=== PATIENT | male | born 1970 | race Caucasian/White ===

== ENCOUNTER 2020-05-11 07:31 | Outpatient (REF) | payer OTHER, SELFPAY ==
[2020-05-11 11:39] LABS: Cholesterol 215 mg/dL; HDL Cholesterol 25 mg/dL; Triglycerides 990 mg/dL
[2020-05-11 11:51] LABS: Alanine Aminotransferase 53 U/L (0-40); Albumin Level 4.2 g/dL (3.5-5.0); Alkaline Phosphatase 161 U/L (39-117); Anion Gap 14 (12-20); Aspartate Amino Transferase 28 U/L (5-37); Bilirubin Total 0.4 mg/dL (0.0-1.0); Blood Urea Nitrogen 13 mg/dL (9-16); Calcium 8.8 mg/dL (8.4-10.2); Carbon Dioxide 26 mmol/L (22-29); Chloride 103 mmol/L (96-108); Estimated Glomerular Filt Rate > 60; Glucose Fasting 138 mg/dL (60-99); Potassium 3.8 mmol/l (3.3-5.1); Sodium 139 mmol/L (135-145); Total Protein 7.4 g/dL (6.5-8.0)
[2020-05-11 12:43] LABS: TSH reflex Free T4 1.71 mIU/mL (0.32-4.0)
== END 2020-05-11 07:32 | disposition home or self-care (01) ==
LOC: HO.HMGCLDS 07:31
PROVIDERS: PCP Nurse Practitioner Family; Visit Provider Nurse Practitioner Family
DX: I10 Essential (primary) hypertension (principal); R74.8 Abnormal levels of other serum enzymes; R73.01 Impaired fasting glucose; E78.5 Hyperlipidemia, unspecified
CPT/HCPCS: 80053; 80061; 84153; 84443

== ENCOUNTER 2020-05-18 14:17 | Outpatient (REF) | payer OTHER, SELFPAY ==
--- NOTE | 2020-05-18 14:20 | FL_ITS ---
EXAMINATION: XR BARIUM SWALLOW CLINICAL INFORMATION: Dysphagia. Globus sensation. COMPARISON: None TECHNIQUE: Routine modified barium swallow was performed in lateral projection under fluoroscopy in presence of speech therapist. FINDINGS: Following oral administration of various consistencies of thin, thick, solid ileum and in between consistencies is normal propagation bolus from the oral cavity through the pharynx into the esophagus. No laryngeal penetration or aspiration seen. No retention of barium seen in the valleculae or piriform sinuses. FLUOROSCOPY TIME: 1.1 minutes DOSE AREA PRODUCT: 2.195 uGy-m2 (microgray-meter squared) FL/FL barium swallow modified IMPRESSION: Unremarkable modified barium swallow. Correlate with speech therapy report.
--- NOTE | 2020-05-19 11:28 | MHC.SL.POC ---
Name: Dinesh Bui Date of : 1970 Age: 49 Date of Registration: 05/18/20 Referring provider: Marcos MARTINEZ Evaluating Clinician: Sarah Beth Garnica M.A. CCC-DEMAND GENERATOR MANAGER Reason for Referral: Patient reports globus sensation and pain when swallowing. Type of Treatment: 48621 Modified Barium Swallow Study Date of Plan of Treatment: 05/18/20 Onset of Symptoms/Illness: 05/18/14 Date Treatment Started: 05/18/20 MEDICAL HISTORY: Year of Onset or Diagnosis: 2013 Comorbidities: Inguinal hernia Degenerative disc disease Decreased hearing right ear Enlarged prostate High triglycerides Dyslipidemia Psoriatic arthritis Current (pre-evaluation) Intake/Diet: Route: PO Diet Grade: Regular Liquid Consistencies: Thin Pre-Study Functional Oral Intake Scale (FOIS): 7- Total oral intake with no restrictions Pain: Currently present reported at time of study, General pain in pharynx. , rated 3 on scale 0-10 SUBJECTIVE: Patient is a 49 year old male who was recently seen by Marcos [place] [employer] for an office visit due to complaints of dysphagia. Physician previously ordered US of thyroid which came back normal. Patient was also previously referred to Raissa who ordered a barium swallow study in 2018, but patient did not complete that exam at that time. Patient reports onset of dysphagia 6 years ago. He reports globus sensation, stating, ?It feels stuck on the right side.? Patient reports difficulty swallowing both liquids and solids, as it ?sometimes goes down the wrong way.? Patient describes the sensation that ?there is something in [his] throat getting in the way on the right side,? which also ?makes a noise when [he] swallows.? Patient reports coughing and a tickle in his throat in cold air. Patient denies any history of pneumonia. Patient reported chronic throat pain, which he rated between 2 and 3 on a scale of 0 to 10. OBJECTIVE: Time-out: performed at 02:45 Evaluation Start: 02:30; Stop: 02:40 Patient Positioning: Standing Viewing Planes: LATERAL ONLY Contrast: MBSImP? Standardized Protocol using commercially prepared, standardized Barium viscosities, including: Varibar? THIN LIQUID (40% w/v, <15 cps) , 1/2 Shortbread Cookie (1 x1 x.25 ) [facility] [place]: [id number] [facility] Results: Lip closure for intraoral bolus containment resulted in no labial escape. Tongue control during bolus hold allowed bolus escape to the lateral buccal cavity/floor of mouth. Bolus preparation and mastication resulted in slow, prolonged chewing/mashing but with complete re-collection. Bolus transport/lingual motion demonstrated delayed initiation of tongue motion. Oral residue was a trace, lining oral structures. Initiation of the pharyngeal swallow occurred as the bolus head was at the posterior laryngeal surface of the epiglottis. Soft palate elevation resulted in no bolus between the soft palate and the pharyngeal wall. Laryngeal elevation was decreased, with partial superior movement of the thyroid cartilage/partial approximation of the arytenoids to the epiglottic petiole. Anterior hyoid excursion demonstrated partial anterior movement. Epiglottic movement resulted in complete inversion. Laryngeal vestibular closure was complete, as indicated by no air or contrast within the laryngeal vestibule at the height of the swallow. Pharyngeal stripping wave was present, but diminished. Pharyngeal contraction could not be determined due to logistical reasons not related to physiologic impairment. Pharyngoesophageal segment opening was completely distended for complete duration with no obstruction of bolus flow. Tongue base retraction allowed a narrow column of contrast or air between the retracted tongue base and the posterior pharyngeal wall. Pharyngeal residue was not present. There was complete pharyngeal clearance. Esophageal clearance in the upright position could not be assessed due to logistical reasons not related to physiologic impairment. Oral Impairment Score: 5 Pharyngeal Impairment Score: 5 (absence of score, component 13) Esophageal Impairment Score: --- (absence of score, component 17) Laryngeal Penetration and Aspiration: Neither penetration nor aspiration was observed in today's study with Lisa, Thin. ASSESSMENT: Clinician Assessment: This exam was conducted by radiologist and speech-language pathologist. Patient was standing for lateral view exam. Patient trialed the following liquid and solid consistencies: -5 mL thin liquid barium -cup sip thin liquid barium (with bolus hold; consecutive sips) -applesauce mixed with barium paste (pureed solid) -chicken salad mixed with barium paste (ground solid) -Kristyn Doone cookie coated in barium paste (regular solid) No aspiration or penetration evident on this exam. Mildly prolonged mastication time, but with complete recollection. Good pharyngeal clearance seen. Partial laryngeal elevation and partial anterior hyoid movement. Epiglottic inversion was complete. Complete laryngeal vestibular closure. Complete distention through pharyngoesophageal segment opening. At this time, dysphagia intervention with a speech-language pathologist is not warranted. Recommend an unmodified diet REGULAR solids and THIN liquids. Due to odynophagia and globus sensation, patient is recommended referrals to gastroenterology and Ear Nose Throat (ENT) for further workup. PLAN: Intake Recommendations: Route: PO Diet Grade: Regular Liquid Consistencies: Thin Post-Study Functional Oral Intake Scale (FOIS): 7- Total oral intake with no restriction Recommendation for Speech Therapy: NA:Typical Evaluation Suggested Referrals: The patient might benefit from a referral to: -Gastroenterology Indication for Referral: further workup for globus sensation and odynophagia -ENT/Otolaryngology Indication for Referral: further workup for globus sensation and odynophagia Therapy Recommendations: Therapy will be discontinued Clinician - Supplemental, Miscellaneous Communication: It is important to note MBSS objective studies are snapshots in time and Patient function might vary with factors such as time of day or concomitant medical conditions. For this reason, the final treatment plan for this patient should rest with their medical care team. Additional recommendations should be considered with the totality of the Patient in mind. Thank for the opportunity to participate in the care of this patient. If you have any questions about the content of this report, please contact the [facility]. Education: Education regarding findings from today's study and plans for therapy were provided to Patient only through Verbal Instruction. Understanding was expressed by the Patient only. Food Service Worker Clinican/Clinical Fellow: No Supervisory Statement: I have reviewed and agree with the documentation written by the student/clinical fellow: N/A Speech Language Pathologist: Sarah Beth Garnica M.A., [facility]-DEMAND GENERATOR MANAGER
== END 2020-05-18 14:18 | disposition home or self-care (01) ==
LOC: HO.XRAY 14:17
PROVIDERS: Visit Provider Nurse Practitioner Family
DX: R13.10 Dysphagia, unspecified (principal)
CPT/HCPCS: 74230; 92611

== ENCOUNTER → 2020-07-13 08:11 | Outpatient (BNVA) | payer OTHER, SELFPAY | PROVIDERS: PCP Nurse Practitioner Family; Visit Provider Internal Medicine Gastroenterology | DX: Z13.89 Encounter for screening for other disorder (principal) | CPT/HCPCS: 99212 ==

== ENCOUNTER 2020-11-12 08:05 | Outpatient (REF) | payer OTHER, SELFPAY ==
[2020-11-12 11:25] LABS: MANUAL DIFF FLAG NO
[2020-11-12 11:43] LABS: Basophils Percent Auto 0.3 % (0-2); Eosinophils Absolute Auto 0.1 X10*3/uL (0.0-0.4); Eosinophils Percent Auto 1.1 % (0-4); Estimated Average Glucose 128 mg/dL; Hematocrit 41.7 % (42-52); Hemoglobin 14.5 g/dl (14.0-18.0); Hemoglobin A1c % 6.1 %; Imm Gran Abs Auto 0.01 X10*3/uL (0.00-0.03); Imm Gran Pct Auto 0.1 % (0.0-0.4); Lymphocytes Absolute Auto 3.3 X10*3/uL (1.2-4.9); Lymphocytes Percent Auto 41.2 % (20-40); Mean Corpuscular HGB Conc 34.8 g/dl (31.0-36.0); Mean Corpuscular Hemoglobin 30.3 pg (27.0-33.0); Mean Corpuscular Volume 87.1 fL (80-98); Mean Platelet Volume 10.9 fL (9.4-12.4); Monocytes Absolute Auto 0.4 X10*3/uL (0.1-1.2); Monocytes Percent Auto 5.4 % (2-11); Neutrophils Absolute Auto 4.1 X10*3/uL (2.0-8.3); Neutrophils Percent Auto 51.9 % (45-73); Platelet Count 248 X10*3/uL (160-400); Red Blood Count 4.79 X10*6/uL (4.60-5.80); Red Cell Distribution Width 11.9 % (11.0-16.0)
[2020-11-12 11:56] LABS: Alanine Aminotransferase 109 U/L (0-40); Albumin Level 4.5 g/dL (3.5-5.0); Alkaline Phosphatase 153 U/L (39-117); Anion Gap 15 (12-20); Aspartate Amino Transferase 75 U/L (5-37); Bilirubin Total 0.5 mg/dL (0.0-1.0); Blood Urea Nitrogen 11 mg/dL (9-16); Calcium 9.3 mg/dL (8.4-10.2); Carbon Dioxide 25 mmol/L (22-29); Chloride 105 mmol/L (96-108); Cholesterol 196 mg/dL; Estimated Glomerular Filt Rate > 60; Gamma Glutamyl Transpeptidase 178 U/L (11-51); Glucose Fasting 144 mg/dL (60-99); HDL Cholesterol 28 mg/dL; Potassium 3.7 mmol/L (3.3-5.1); Sodium 141 mmol/L (135-145); Total Protein 7.3 g/dL (6.5-8.0); Triglycerides 830 mg/dL
[2020-11-14 19:46] LABS: TS Negative Control Passed; TS Panel A 0; TS Panel B 0; TS Positive Control Passed; TSpotTB Negative (SeeBelow)
== END 2020-11-12 08:06 | disposition home or self-care (01) ==
LOC: HO.HMGCLDS 08:05
PROVIDERS: PCP Nurse Practitioner Family; Visit Provider Physician Assistant Medical
DX: Z11.1 Encounter for screening for respiratory tuberculosis (principal); L40.0 Psoriasis vulgaris; R73.01 Impaired fasting glucose; I10 Essential (primary) hypertension; R74.8 Abnormal levels of other serum enzymes; E78.5 Hyperlipidemia, unspecified; Z79.899 Other long term (current) drug therapy
CPT/HCPCS: 36415; 80053; 80061; 82977; 83036; 85025; 86481

== ENCOUNTER 2022-06-23 06:54 | Outpatient (REF) | payer OTHER, SELFPAY ==
[2022-06-23 11:23] LABS: MANUAL DIFF FLAG NO
[2022-06-23 11:27] LABS: Appearance Urine Clear; Color Urine Yellow; Glucose Urine UA Negative (Negative); Leukocyte Esterase Urine Negative (Negative); Nitrite Urine Negative (Negative); PH 5.5 (5.0-9.0); Urine Blood Negative (Negative); Urine Ketones Negative (Negative); Urine Protein Trace mg/dL (Neg-Trace)
[2022-06-23 11:31] LABS: Basophils Percent Auto 0.1 % (0-2); Eosinophils Absolute Auto 0.1 X10*3/uL (0.0-0.4); Eosinophils Percent Auto 1.2 % (0-4); Hematocrit 44.8 % (42.0-52.0); Hemoglobin 15.5 g/dl (14.0-18.0); Imm Gran Abs Auto 0.03 X10*3/uL (0.00-0.03); Imm Gran Pct Auto 0.3 % (0.0-0.4); Lymphocytes Absolute Auto 3.8 X10*3/uL (1.2-4.9); Lymphocytes Percent Auto 41.1 % (20-40); Mean Corpuscular HGB Conc 34.6 g/dl (31.0-36.0); Mean Corpuscular Hemoglobin 30.6 pg (27.0-33.0); Mean Corpuscular Volume 88.5 fL (80.0-98.0); Mean Platelet Volume 10.9 fL (9.4-12.4); Monocytes Absolute Auto 0.5 X10*3/uL (0.1-1.2); Monocytes Percent Auto 5.5 % (2-11); Neutrophils Absolute Auto 4.8 x10*3/uL (2.0-8.3); Neutrophils Percent Auto 51.8 % (45-73); Platelet Count 269 X10*3/uL (160-400); Red Blood Count 5.06 X10*6/uL (4.60-5.80); Red Cell Distribution Width 11.8 % (11.0-16.0); White Blood Count 9.3 X10*3/uL (4.8-10.8)
[2022-06-23 11:55] LABS: Alanine Aminotransferase 44 U/L (0-40); Albumin Level 4.4 g/dL (3.5-5.0); Alkaline Phosphatase 145 U/L (39-117); Anion Gap 12 (12-20); Aspartate Amino Transferase 30 U/L (5-37); Bilirubin Total 0.8 mg/dL (0.0-1.0); Blood Urea Nitrogen 17 mg/dL (9-16); Calcium 9.3 mg/dL (8.4-10.2); Carbon Dioxide 27 mmol/L (22-29); Chloride 105 mmol/L (96-108); Cholesterol 191 mg/dL; Estimated Glomerular Filt Rate > 60; Glucose Fasting 144 mg/dL (60-99); HDL Cholesterol 24 mg/dL; Potassium 3.9 mmol/L (3.3-5.1); Sodium 140 mmol/L (135-145); Total Protein 7.1 g/dL (6.5-8.0); Triglycerides 534 mg/dL
[2022-06-23 12:13] LABS: Prostate Specific Antigen Scr 0.82 ng/mL (<0.05-4.0); TSH reflex Free T4 0.79 uIU/mL (0.32-4.0)
== END 2022-06-23 06:55 | disposition home or self-care (01) ==
LOC: HO.HMGCLDS 06:54
PROVIDERS: PCP Nurse Practitioner Family; Visit Provider Nurse Practitioner Family
DX: Z12.5 Encounter for screening for malignant neoplasm of prostate (principal); R51.9 Headache, unspecified; I10 Essential (primary) hypertension
CPT/HCPCS: 36415; 80053; 80061; 81003; 84153; 84443; 85025

== ENCOUNTER 2022-06-28 09:43 | Outpatient (REF) | payer OTHER, SELFPAY ==
--- NOTE | ~2022-06-28 | US_ITS ---
EXAMINATION: US SCROTUM CLINICAL INFORMATION: Testicular pain, unspecified. COMPARISON: None TECHNIQUE: A sonogram of the scrotum was performed assessing cruz-scale appearance and color Doppler flow. Spectral Doppler analysis of the arterial and venous flow were performed in the testes bilaterally. FINDINGS: RIGHT: Right testicle measures 4.5 x 2.7 x 3.0 cm, volume 18.9 mL. No focal testicular parenchymal lesions are visualized. Spectral Doppler analysis of the arterial and venous flow is normal in the right testis. Right epididymal head is normal in size. Right epididymal Doppler flow is normal. Trace hydrocele. Small varicocele. LEFT: Left testicle measures 4.6 x 2.4 x 4.2 cm, volume 23.9 mL. No focal testicular parenchymal lesions are visualized. Spectral Doppler analysis of the arterial and venous flow is normal in the left testis. Left epididymal head is normal in size. 1.8 x 0.5 x 1.3 cm simple ovoid epididymal cyst. Left epididymal Doppler flow is normal. Trace hydrocele. Small varicocele. US/US scrotum IMPRESSION: Left epididymal cyst. Trace bilateral hydroceles. Mild bilateral varicoceles. Normal testicles.
== END 2022-06-28 09:44 | disposition home or self-care (01) ==
LOC: HO.HMGCX 09:43
PROVIDERS: PCP Nurse Practitioner Family; Visit Provider Nurse Practitioner Family
DX: N50.819 Testicular pain, unspecified (principal)
CPT/HCPCS: 76870

== ENCOUNTER 2022-07-05 07:16 | Outpatient (REF) | payer OTHER, SELFPAY ==
--- NOTE | ~2022-07-05 | MR_ITS ---
EXAMINATION: MR BRAIN WITHOUT CONTRAST CLINICAL INFORMATION: Chronic migraine without aura. COMPARISON: Brain MRI February 13, 2015 TECHNIQUE: Multiplanar, multisequence imaging of the brain was performed without intravenous contrast. FINDINGS: There is no acute infarction, mass, hemorrhage, or extra-axial collection. The ventricles, sulci, and basilar cisterns are normal in size and configuration. Mild nonspecific T2/FLAIR hyperintensity is seen within the central greg, similar to prior, presumably chronic microangiopathic changes. The flow voids of the major intracranial arteries appear intact. There is mild mucosal thickening within the paranasal sinuses. Orbital contents appear normal. MR/MR head/brain wo con IMPRESSION: No acute infarct, mass lesion, intracranial hemorrhage, or evidence of hydrocephalus.
== END 2022-07-05 07:17 | disposition home or self-care (01) ==
LOC: HO.MRI 07:16
PROVIDERS: Visit Provider Nurse Practitioner Family
DX: G43.709 Chronic migraine without aura, not intractable, without status migrainosus (principal)
CPT/HCPCS: 70551

== ENCOUNTER 2022-07-06 08:52 | Outpatient (REF) | payer OTHER, SELFPAY ==
--- NOTE | ~2022-07-06 | US_ITS ---
EXAMINATION: US ABDOMEN COMPLETE CLINICAL INFORMATION: Abnormal levels of other serum enzymes-elevated LFTs. COMPARISON: None TECHNIQUE: Real-time imaging of the abdominal viscera. FINDINGS: PANCREAS: The pancreas appears unremarkable, without masses or ductal dilatation, with the exception of the tail which is obscured by bowel gas. ABDOMINAL AORTA: The proximal, mid, and distal segments are normal in caliber. INFERIOR VENA CAVA: Visualized portions are normal. LIVER: The liver is enlarged. The liver contour is normal. There is diffuse increased liver parenchymal echogenicity, consistent with hepatic steatosis. Focal fatty sparing is present. No focal hepatic lesion. There is no intrahepatic biliary duct dilatation seen. GALLBLADDER: Multiple gallbladder wall polyps are seen the largest measuring 7 mm. The gallbladder is physiologically distended without evidence of stones, sludge, wall thickening or pericholecystic fluid. COMMON BILE DUCT: Normal in caliber measuring 0.4 cm in diameter. RIGHT KIDNEY: No hydronephrosis. No renal calculi or focal parenchymal lesions. The kidney measures 12.1 cm in maximum dimension. LEFT KIDNEY: No hydronephrosis. No renal calculi or focal parenchymal lesions. The kidney measures 12.3 cm in maximum dimension. SPLEEN: Normal. The spleen measures 12.7 cm in maximum dimension. FREE FLUID: None. US/US abdomen complete IMPRESSION: 1. Enlarged fatty liver. 2. Gallbladder polyps, the largest 7 mm. In the low risk category, no, follow-up is recommended for polyps of 6 mm or smaller; follow-up US at 12 months is recommended for polyps measuring 7?9 mm; follow-up US at 6, 12, 24, and 36 months is recommended for polyps measuring 10?14 mm; and surgical consultation is recommended for polyps of 15 mm or larger
== END 2022-07-06 08:53 | disposition home or self-care (01) ==
LOC: HO.HMGCX 08:52
PROVIDERS: PCP Nurse Practitioner Family; Visit Provider Nurse Practitioner Family
DX: R74.8 Abnormal levels of other serum enzymes (principal)
CPT/HCPCS: 76700

== ENCOUNTER 2022-09-21 09:21 | Outpatient (REF) | payer OTHER, SELFPAY ==
[2022-09-23 15:14] LABS: TS Negative Control Passed; TS Panel A 0; TS Panel B 0; TS Positive Control Passed; TSpotTB Negative (Negative)
== END 2022-09-21 09:22 | disposition home or self-care (01) ==
LOC: HO.HMGCLDS 09:21
PROVIDERS: PCP Nurse Practitioner Family; Visit Provider Physician Assistant Medical
DX: L40.0 Psoriasis vulgaris (principal); Z79.899 Other long term (current) drug therapy; Z11.1 Encounter for screening for respiratory tuberculosis
CPT/HCPCS: 36415; 86481

== ENCOUNTER 2023-04-12 08:01 | Outpatient (REF) | payer OTHER, SELFPAY ==
[2023-04-12 12:19] LABS: Estimated Average Glucose 131 mg/dL; Hemoglobin A1c % 6.2 % (<6.0)
[2023-04-12 12:26] LABS: Cholesterol 165 mg/dL (<200); Gamma Glutamyl Transpeptidase 135 U/L (11-51); HDL Cholesterol 26 mg/dL (>40); Triglycerides 754 mg/dL (<150)
[2023-04-12 12:38] LABS: HBc Num1 0.26 S/CO (0.00-0.79); HBsAGNum1 0.42 S/CO (0.00-0.99); Hepatitis A Antibody IgM 0.16 Index (0-0.79); Hepatitis B Core Antibody Nonreactive (Nonreactive); Hepatitis B Surface Antigen Negative (Negative); ~HepC Num1 0.17 S/CO (0.00-0.79); ~Hepatitis A Antibody IgM Nonreactive (Nonreactive); ~Hepatitis B Surface Antibody NONREACTIVE (Nonreactive); ~Hepatitis C Antibody Nonreactive (Nonreactive)
[2023-04-17 23:48] LABS: Alk.Phos Iso. Macrohepatic 0 % (<=0); Alk.Phos Isoenzymes Bone 41 % (28-66); Alk.Phos Isoenzymes Intest 0 % (1-24); Alk.Phos Isoenzymes Liver 59 % (25-69); Alk.Phos Isoenzymes Placental 0 % (<=0); Alk.Phos Isoenzymes Total 116 U/L (35-144)
== END 2023-04-12 08:02 | disposition home or self-care (01) ==
LOC: HO.HMGCLDS 08:01
PROVIDERS: PCP Nurse Practitioner Family; Visit Provider Nurse Practitioner Family
DX: E11.9 Type 2 diabetes mellitus without complications (principal); R74.8 Abnormal levels of other serum enzymes; E78.5 Hyperlipidemia, unspecified
CPT/HCPCS: 36415; 80061; 82977; 83036; 84080; 86704; 86706; 86709; 86803; 87340

== ENCOUNTER 2023-06-29 08:48 | Outpatient (REF) | payer OTHER, SELFPAY ==
--- NOTE | ~2023-06-29 | US_ITS ---
EXAMINATION: US ABDOMEN COMPLETE CLINICAL INFORMATION: Cholesterolosis of the gallbladder. COMPARISON: Ultrasound abdomen complete 07/06/2022. Renal ultrasound 01/09/2018. TECHNIQUE: Real-time imaging of the abdominal viscera. FINDINGS: PANCREAS: Normal. ABDOMINAL AORTA: Upper and mid abdominal aorta are normal. Distal abdominal aorta is not well visualized. INFERIOR VENA CAVA: Visualized portions are normal. LIVER: The liver is normal in size. The liver contour is normal. Echogenic liver probably representing fatty infiltration. There are hypoechoic areas adjacent to the gallbladder, characteristic location of focal fatty sparing. No focal hepatic lesion. There is no intrahepatic biliary duct dilatation seen. GALLBLADDER: Multiple echogenic densities adjacent to the gallbladder wall that do not move or shadow suggestive of gallbladder wall polyps. Largest measures 5 mm. This does not appear appreciably changed from prior exam. The gallbladder is normal in size. No gallstone seen. COMMON BILE DUCT: Normal in caliber measuring 0.48 cm in diameter. RIGHT KIDNEY: Normal. No hydronephrosis. No renal calculi or focal parenchymal lesions. The kidney measures 12.0 cm in maximum dimension. LEFT KIDNEY: 1.5 x 2 cm cyst in the midpole. No imaging follow-up recommended. No hydronephrosis. No renal calculi or focal parenchymal lesions. The kidney measures 12.2 cm in maximum dimension. SPLEEN: Normal. The spleen measures 13.0 cm in maximum dimension. FREE FLUID: None. US/US abdomen complete IMPRESSION: Multiple gallbladder wall polyps similar to previous exams. Fatty infiltration of the liver.
== END 2023-06-29 08:49 | disposition home or self-care (01) ==
LOC: HO.HMGCX 08:48
PROVIDERS: PCP Nurse Practitioner Family; Visit Provider Nurse Practitioner Family
DX: K82.4 Cholesterolosis of gallbladder (principal)
CPT/HCPCS: 76700

== ENCOUNTER 2023-07-10 14:05 | Outpatient (AMB) | payer OTHER, SELFPAY ==
[2023-07-10 14:07] VITALS: BP 140/82; PULSE 78; O2SAT 98; BMI 31.8
--- NOTE | 2023-07-10 14:07 | A.OFFPC_ITS ---
Vital Signs 07/10/23 14:07 Height 5 ft 8 in Weight 209 lb BMI 31.8 BP 140/82 H Blood Pressure Location Lt brachial Position Sitting Pulse 78 Pulse Source Pulse Oximeter Pulse Oximetry (%) 98 Intake Visit Reasons: Follow up pain, meds, rescheduled from 04/06 Intake Note: pt is here for follow up on medications and pain Dietary Services Manager Required: No Accompanied by: Self / Same As Patient Allergies Penicillins [PENICILLINS] Allergy (Mild, Verified 07/10/23 17:32) RASH-CHILDHOOD ALLERGY penicillin V Allergy (Unknown, Verified 07/10/23 17:32) rash, hives Medication List - Last Reconciled 07/10/23 by Marcso Houston, [facility]- amitriptyline 10 mg PO BEDTIME amlodipine 5 mg PO DAILY atorvastatin 80 mg PO DAILY blood sugar diagnostic (FreeStyle Lite Strips) Use to check fasting blood sugar and a random blood sugar during the day. blood-glucose meter (FreeStyle Lite Meter kit) Use to check fasting blood sugar and a random blood sugar during the day. clobetasol 0.05% topical fenofibrate nanocrystallized 145 mg PO DAILY gabapentin 600 mg PO QID guselkumab (Tremfya) mg subcut lancets (FreeStyle Lancets) Use to check fasting blood sugar and a random blood sugar during the day. lisinopril 10 mg PO DAILY metoprolol succinate ER 25 mg PO DAILY omega-3 acid ethyl esters 2 caps PO BID paroxetine HCl 40 mg PO QAM Tobacco use date assessed: 07/10/23 HPI Follow up pain, meds, rescheduled from 04/06 HPI Details Pt is here for a PE. Will order labs. Due for PSA, will order. Denies dribbling with urination, weak stream, and frequent nocturia. Pt is a diabetic, on an CHARLES and a statin. Due for A1C and microalbumin. Denies polyuria, polydipsia, and neuropathy. Pt denies any signs and symptoms of hypoglycemia and does know how to correct it. Pt reports that his blood sugar has been ranging from 130s-150s. Due for repeat colon screen, pt wants to, hold off right now. NOTE: pt reports his BP is much better at home. COUNT INCLUDES THE [facility] Medical History Lumbago with sciatica Pharyngeal dysphagia Decreased hearing of right ear DDD (degenerative disc disease), cervical Enlarged prostate Psoriatic arthritis High triglycerides Dyslipidemia Surgical History History of esophagogastroduodenoscopy (EGD) H/O colonoscopy History of inguinal hernia Family History Father Colon cancer Mother HTN (hypertension) Brother No problems noted. Social History Household Members: Other Alcohol intake: current Alcohol intake frequency: does not drink Cigarettes Per Day: 10 Substance Use Type: Marijuana Cognitive needs: No Hearing needs: Yes Vision needs: No Questionnaire PHQ-9 Over the last 2 weeks, how often have you been bothered by any of the following problems? 1. Little interest or pleasure in doing things: nearly every day 2. Feeling down, depressed, or hopeless: nearly every day 3. Trouble falling or staying asleep, or sleeping too much: nearly every day 4. Feeling tired or having little energy: nearly every day 5. Poor appetite or overeating: several days 6. Feeling bad about yourself - or that you are a failure or have let yourself or your family down: nearly every day 7. Trouble concentrating on things, such as reading the newspaper or watching television: several days 8. Moving or speaking so slowly that other people could have noticed. Or the opposite - being so fidgety or restless that you have been moving around a lot more than usual: several days 9. Thoughts that you would be better off or of hurting yourself in some way: more than half the days Total score: 20 Depression Screening Interpretation: Positive Depression Screening Follow-up: Existing condition and Declines treatment Depression Screening Done: Yes 27503 - PHQ-9 Billing: Yes Source: Developed by Drs. Glenn Sainz, Nani Bolden, Kyler Eldridge and colleagues, with an educational dinah from [employer]. Thrive Questionnaire Date Thrive assessed: 07/10/23 I am a: Patient What is your living situation today?: I have a steady place to live Within the past 12 months, did the food you bought not last and you didn't have the money to get more?: Never true Within the past 12 months, did you worry whether your food would run out before you got money to buy more?: Never true Do you have trouble paying for medicines?: No Do you have trouble getting transportation to medical appointments?: No Do you have trouble paying your heating and electricity bill?: No Do you have trouble taking care of your child, family member or friend?: No Do you have trouble with day-to-day activities such as bathing, preparing meals, shopping, managing finances, etc.?: No Are you currently unemployed and looking for a job?: No Are you interested in more education?: No Please select the resources that you would like help with: None Currently or been in a relationship where the following occur: no concerns reported THRIVE Score: 0 AUDIT C Alcohol Use Questionnaire (AUDIT-C) 1. How often do you have a drink containing alcohol?: Never 3. How often do you have six or more drinks on one occasion?: Never Total Score: 0 Score Reviewed/Action Taken: Yes ARLEN-7 AMB Questionnaire ARLEN-7 Feeling nervous, anxious, or on edge: 3 = Nearly every day Not being able to stop or control worryin = Nearly every day Worrying too much about different things: 3 = Nearly every day Trouble relaxin = Nearly every day Being so restless that it is hard to sit still: 3 = Nearly every day Becoming easily annoyed or irritable: 3 = Nearly every day Feeling afraid as if something awful might happen: 3 = Nearly every day Total ARLEN-7 score (0-4 normal; 5-9 mild; 10-14 moderate; 15-21 severe): 21 Source: Developed by Drs. Glenn Sainz, Nani Bolden, Kyler Eldridge and colleagues, with an educational dinah from [employer]. ARLEN-7 Assessment Billing ARLEN-7 Assessment Tool: ARLEN-7 Assessment 48826 Review of Systems Const Denies chills and Denies fever(s) Eyes Denies blurry vision ENT Denies vertigo, Denies dizziness and Denies sore throat Card Denies chest pain at rest, Denies chest pain with activity, Denies diaphoresis, Denies dyspnea and Denies dyspnea on exertion Resp Denies cough, Denies dyspnea, Denies dyspnea on exertion and Denies wheezing GI Denies abdominal pain, Denies melena, Denies hematochezia, Denies constipation, Denies diarrhea and Denies loose stools Denies hematuria Musc Denies numbness and Denies tingling Skin/Breast Denies lesions Neuro Denies vertigo, Denies dizziness, Denies numbness and Denies tingling Psych Denies anxiety, Denies depression, Denies homicidal ideation, Denies suicidal ideation and Denies other (substance abuse) Aller/Immun Denies wheezing Physical exam (Primary Care) Vital Signs: Last Vital Signs Pulse 78 07/10/23 14:07 BP 140/82 H 07/10/23 14:07 Pulse Ox 98 07/10/23 14:07 BMI result Body Mass Index 31.8 Tobacco/Smoking Status: Tobacco use Status Tobacco use date assessed 07/10/23 07/10/23 14:10 PHQ-9: PHQ-9 Score PHQ-9: Total score 20 07/10/23 17:37 Depression Screening Interpretation: Positive Depression Screening Follow-up: Existing condition and Declines treatment Thrive Assessment: Date of Thrive Assessment Date Thrive assessed 07/10/23 07/10/23 14:21 Currently or been in a relationship where the following occur: no concerns reported Const General: cooperative Nutritional Appearance: well nourished Orientation/consciousness: patient oriented x3 HENMT Head: Yes normal to inspection, Yes normocephalic and Yes atraumatic Ears: TM's normal bilaterally Eyes General: appearance normal, both eyes and all related structures Alignment and Position: alignment normal and position normal Neck Neck: Yes normal visual inspection and Yes no lymphadenopathy Thyroid: Thyroid normal Resp Effort & Inspection: normal respiratory effort Auscultation: clear to auscultation bilaterally Cardio Rate: regular rate Rhythm: regular rhythm Heart sounds: S1 normal heart sound present, S2 normal heart sound present and no murmurs GI Palpation (GI): Soft to palpation and nontender Auscultation: normal bowel sounds Male General Exam: Yes normal external exam Penis: normal penis Scrotum: scrotum normal, testes descended bilaterally and no inguinal hernias Testes: no testicular mass Skin Rashes: no rashes Neuro General: patient oriented x3, moves all extremities, no focal motor deficits and deep tendon reflexes 2+ bilaterally Romberg Test: Negative Extrem Other: extensive dry psoriatic patches to plantar feet Psych Appearance: grossly normal Mental Status: mental status grossly normal Speech and movement: Normal speech and movement present Affect: normal affect Attitude: cooperative Thought process: Normal thought process present Thought content: Normal thought content present Insight: Good insight present (Psych) Judgement: Good judgement present (Psych) Results AMB Hemoglobin A1c AMB Hemoglobin A1c 7.3 % Last Edit by Edwin Womack CMA on 07/10/23 14: 53 Results Reviewed Results Reviewed: Laboratory Last Values Hgb A1c (Clinic) 7.3 % (4.0-6.0) H 07/10/23 14:52 Assessment and Plan Assessment & Plan (1) Diabetes: Code(s): E11.9 - Type 2 diabetes mellitus without complications Plan: Labs ordered, farxiga started (sent) (2) Physical exam: Code(s): Z00.00 - Encounter for general adult medical examination without abnormal findings Plan: Labs ordered (3) Screening PSA (prostate specific antigen): Code(s): Z12.5 - Encounter for screening for malignant neoplasm of prostate Plan: PSA ordered Plan The patient agreed to the use of a medical staff credentialing coordinator for this encounter. Scribed for KIANA Rodriguez by Rosalva Hallman medical staff credentialing coordinator, on 07/10/2023 at 14:30 EST. Orders: Orders Complete Blood Count Auto Diff Today E11.9 - Type 2 diabetes mellitus without complications, Z00.00 - Encounter for general adult medical examination without abnormal findings Comprehensive [place]. Panel Fast Today E11.9 - Type 2 diabetes mellitus without complications, Z00.00 - Encounter for general adult medical examination without abnormal findings TSH reflex Free T4 Today E11.9 - Type 2 diabetes mellitus without complications, Z00.00 - Encounter for general adult medical examination without abnormal findings UA CC w/rflx Micro + Cult Today E11.9 - Type 2 diabetes mellitus without complications, Z00.00 - Encounter for general adult medical examination without abnormal findings Lipid Panel Today E11.9 - Type 2 diabetes mellitus without complications, Z00.00 - Encounter for general adult medical examination without abnormal findings Prostate Specific Antigen Scr Today Z12.5 - Encounter for screening for malignant neoplasm of prostate AMB Hemoglobin A1c Today Z13.9 - Encounter for screening, unspecified Microalbumin, Random (w Creat) Today E11.9 - Type 2 diabetes mellitus without complications Medications: New dapagliflozin propanediol (Farxiga) 5 mg PO DAILY 90 tabs 0RF Coding Level of Care Code Est Pt Prev Care 40-64y(62245) Diagnoses Diabetes E11.9 Physical exam Z00.00 Screening PSA (prostate specific antigen) Z12.5 Additional Codes ARLEN-7 Assessment Billing - ARLEN-7 Assessment Tool: ARLEN-7 Assessment 63037 ([id number])
== END 2023-07-10 14:52 | disposition home or self-care (01) ==
PROVIDERS: PCP Nurse Practitioner Family; Visit Provider Nurse Practitioner Family
DX: Z00.00 Encounter for general adult medical examination without abnormal findings (principal); E11.9 Type 2 diabetes mellitus without complications; Z12.5 Encounter for screening for malignant neoplasm of prostate
CPT/HCPCS: 83036; 99396

== ENCOUNTER 2023-11-06 09:09 | Outpatient (REF) | payer OTHER, SELFPAY ==
[2023-11-06 10:20] LABS: MANUAL DIFF FLAG NO
[2023-11-06 10:32] LABS: Basophils Percent Auto 0.1 % (0-2); Eosinophils Absolute Auto 0.1 X10*3/uL (0.0-0.4); Hematocrit 43.7 % (42.0-52.0); Hemoglobin 15.6 g/dl (14.0-18.0); Imm Gran Abs Auto 0.03 X10*3/uL (0.00-0.03); Imm Gran Pct Auto 0.4 % (0.0-0.4); Lymphocytes Absolute Auto 3.2 X10*3/uL (1.2-4.9); Lymphocytes Percent Auto 45.2 % (20-40); Mean Corpuscular HGB Conc 35.7 g/dl (31.0-36.0); Mean Corpuscular Hemoglobin 31.9 pg (27.0-33.0); Mean Corpuscular Volume 89.4 fL (80.0-98.0); Mean Platelet Volume 10.8 fL (9.4-12.4); Monocytes Absolute Auto 0.3 X10*3/uL (0.1-1.2); Monocytes Percent Auto 4.6 % (2-11); Neutrophils Absolute Auto 3.5 x10*3/uL (2.0-8.3); Neutrophils Percent Auto 48.7 % (45-73); Platelet Count 254 X10*3/uL (160-400); Red Blood Count 4.89 X10*6/uL (4.60-5.80); Red Cell Distribution Width 11.6 % (11.0-16.0); White Blood Count 7.1 X10*3/uL (4.8-10.8)
[2023-11-06 10:58] LABS: Appearance Urine Clear; Color Urine Yellow; Glucose Urine UA >=1000 mg/dL (Negative); Leukocyte Esterase Urine Negative (Negative); Nitrite Urine Negative (Negative); Specific Gravity - Urine >= 1.030 (1.005-1.025); UMIC TRIGGER UACC YES; Urine Blood Negative (Negative); Urine Ketones Negative (Negative); Urine Protein Negative (Neg-Trace)
[2023-11-06 11:02] LABS: Alanine Aminotransferase 76 U/L (0-40); Albumin Level 4.3 g/dL (3.5-5.0); Alkaline Phosphatase 134 U/L (39-117); Anion Gap 14 (12-20); Aspartate Amino Transferase 59 U/L (5-37); Bilirubin Total 0.4 mg/dL (0.0-1.0); Blood Urea Nitrogen 8 mg/dL (9-16); Calcium 9.3 mg/dL (8.4-10.2); Carbon Dioxide 22 mmol/L (22-29); Chloride 109 mmol/L (96-108); Cholesterol 179 mg/dL (<200); Estimated Glomerular Filt Rate > 60; Glucose Fasting 144 mg/dL (60-99); HDL Cholesterol 29 mg/dL (>40); Potassium 3.7 mmol/L (3.3-5.1); Sodium 141 mmol/L (135-145); Total Protein 7.3 g/dL (6.5-8.0); Triglycerides 655 mg/dL (<150)
[2023-11-06 11:13] LABS: Bacteria Urine None Seen (None Seen); Hyaline Casts Urine 0-2 /LPF (0-2); Prostate Specific Antigen Scr 0.95 ng/mL (<0.05-4.0); RBC Urine 0-2 /HPF (0-2); Squamous Epithelial Cell Urine 0-2 /HPF (0-2); WBC Urine 0-5 /HPF (0-5)
[2023-11-06 11:17] LABS: TSH reflex Free T4 1.74 uIU/mL (0.32-4.0)
[2023-11-06 11:18] LABS: Creatinine Urine 111.21 mg/dL; Microalbum/Creatinine Ratio Ur 31.4 ug/mg cr (<30)
[2023-11-09 01:54] LABS: TS Negative Control Passed; TS Panel A 0; TS Panel B 0; TS Positive Control Passed; TSpotTB Negative (Negative)
== END 2023-11-06 09:10 | disposition home or self-care (01) ==
LOC: HO.HMGCLDS 09:09
PROVIDERS: PCP Nurse Practitioner Family; Referring Provider Physician Assistant Medical; Visit Provider Nurse Practitioner Family
DX: Z00.00 Encounter for general adult medical examination without abnormal findings (principal); L40.0 Psoriasis vulgaris; Z79.899 Other long term (current) drug therapy; E11.9 Type 2 diabetes mellitus without complications; Z12.5 Encounter for screening for malignant neoplasm of prostate
CPT/HCPCS: 36415; 80053; 80061; 81001; 82043; 82570; 84153; 84443; 85025; 86481

== ENCOUNTER 2023-11-28 15:29 | Outpatient (AMB) | payer OTHER, SELFPAY ==
--- NOTE | 2023-11-28 15:32 | MHC.PC.OV ---
Vital Signs 11/28/23 15:33 Height 5 ft 8 in Weight 204 lb BMI 31.0 BP 130/74 Blood Pressure Location Rt brachial Position Sitting Pulse 69 Pulse Source Pulse Oximeter Pulse Oximetry (%) 96 Oxygen Delivery Method Room Air Intake Visit Reasons: 3M F/U DM Labs Intake Note: Patient here to f/u on labs. Allergies Penicillins [PENICILLINS] Allergy (Mild, Verified 11/28/23 16:57) RASH-CHILDHOOD ALLERGY penicillin V Allergy (Unknown, Verified 11/28/23 16:57) rash, hives Medication List - Last Reconciled 11/28/23 by Marcos Houston, [facility] amitriptyline 10 mg PO BEDTIME amlodipine 5 mg PO DAILY atorvastatin 80 mg PO DAILY blood sugar diagnostic (FreeStyle Lite Strips) Use to check fasting blood sugar and a random blood sugar during the day. blood-glucose meter (FreeStyle Lite Meter kit) Use to check fasting blood sugar and a random blood sugar during the day. clobetasol 0.05% topical dapagliflozin propanediol (Farxiga) 5 mg PO DAILY fenofibrate nanocrystallized 145 mg PO DAILY gabapentin 600 mg PO QID guselkumab (Tremfya) mg subcut lancets (FreeStyle Lancets) Use to check fasting blood sugar and a random blood sugar during the day. lisinopril 10 mg PO DAILY metoprolol succinate ER 25 mg PO DAILY omega-3 acid ethyl esters 2 caps PO BID paroxetine HCl 40 mg PO QAM Tobacco use date assessed: 07/10/23 HPI 3M F/U DM Labs HPI Details Pt is a diabetic, on an CHARLES and a statin. Due for A1C, will order. Microalbumin is up to date. Denies polyuria, polydipsia, and neuropathy. Pt denies any signs and symptoms of hypoglycemia and does know how to correct it. Pt reports that his blood sugar has been in the 120s-130s. Due for eye exam, will refer. Pt would not like to do a colonoscopy, will order cologuard. Pt has been smoking since age 14, will refer for low-dose CT. Will have pt repeat lipids in 2 months. Pt c/o cervical neck pain. He reports numbness down his bilat upper extremities. Will order XR and EMG/nerve conduction testing. [facility] Medical History (Updated 11/28/23 @ 16:18 by KIANA Siu) Lumbago with sciatica Pharyngeal dysphagia Decreased hearing of right ear DDD (degenerative disc disease), cervical Enlarged prostate Psoriatic arthritis High triglycerides Dyslipidemia Surgical History History of esophagogastroduodenoscopy (EGD) H/O colonoscopy History of inguinal hernia Family History Father Colon cancer Mother HTN (hypertension) Brother No problems noted. Social History Household Members: Other Alcohol intake: current Alcohol intake frequency: does not drink Cigarettes Per Day: 10 Substance Use Type: Marijuana Cognitive needs: No Hearing needs: Yes Vision needs: No Questionnaire Thrive Questionnaire Date Thrive assessed: 07/10/23 Review of Systems Const Reports as per HPI Physical exam (Primary Care) Vital Signs: Last Vital Signs Pulse 69 11/28/23 15:33 BP 130/74 11/28/23 15:33 Pulse Ox 96 11/28/23 15:33 Oxygen Delivery Method Room Air 11/28/23 15:33 BMI result Body Mass Index 31.0 Tobacco/Smoking Status: Tobacco use Status Tobacco use date assessed 07/10/23 11/28/23 15:33 Thrive Assessment: Date of Thrive Assessment Date Thrive assessed 07/10/23 11/28/23 15:33 Const General: cooperative Nutritional Appearance: obese Orientation/consciousness: patient oriented x3 Resp Other: lungs clear/faintly diminished Effort & Inspection: normal respiratory effort Cardio Rate: regular rate Rhythm: regular rhythm Heart sounds: S1 normal heart sound present and S2 normal heart sound present Back/Spine/Pelvis Other: increased cervical neck pain with spurlings, limited ROM and pain with turning head side to side, chin tucks, and chin raises due to pain Neuro General: patient oriented x3 Extrem Other: bilat feet: + sensation with use of monofilament, feet intact, severe onychomycosis noted bilat Psych Appearance: grossly normal Mental Status: mental status grossly normal Speech and movement: Normal speech and movement present Affect: normal affect Attitude: cooperative Thought process: Normal thought process present Thought content: Normal thought content present Insight: Good insight present (Psych) Judgement: Good judgement present (Psych) Assessment and Plan Assessment & Plan (1) Smoker: Code(s): F17.200 - Nicotine dependence, unspecified, uncomplicated Plan: Referred for low-dose CT (2) Dyslipidemia: Code(s): E78.5 - Hyperlipidemia, unspecified Plan: Continue statin, fenofibrate, and omega 3 acid ethyl esters, repeat lipids in 2 months (3) High triglycerides: Code(s): E78.1 - Pure hyperglyceridemia Plan: Continue statin, fenofibrate, and omega 3 acid ethyl esters, repeat lipids in 2 months (4) Diabetes: Code(s): E11.9 - Type 2 diabetes mellitus without complications Plan: A1C done in office (5) Cervical neck pain with evidence of disc disease: Code(s): M50.90 - Cervical disc disorder, unspecified, unspecified cervical region Plan: XR ordered (6) Left upper extremity numbness: Code(s): R20.0 - Anesthesia of skin Plan: EMG/nerve conduction testing ordered (7) Numbness and tingling of right upper extremity: Code(s): R20.0 - Anesthesia of skin; R20.2 - Paresthesia of skin Plan The patient agreed to the use of a medical van driver for this encounter. Scribed for KIANA Rodriguez by Rosalva Hallman medical van driver, on 11/28/2023 at 15:45 EST. Orders: Orders Lipid Panel 2 Months E78.1 - Pure hyperglyceridemia, E78.5 - Hyperlipidemia, unspecified Comprehensive [place]. Panel Fast 2 Months E78.1 - Pure hyperglyceridemia, E78.5 - Hyperlipidemia, unspecified XR cervical spine 2V Today M50.90 - Cervical disc disorder, unspecified, unspecified cervical region Hemoglobin A1c 2 Months E11.9 - Type 2 diabetes mellitus without complications NE nerve conduction velocity Today R20.0 - Anesthesia of skin NE electromyogram (EMG) Today R20.0 - Anesthesia of skin AMB EKG-In Office Today R20.0 - Anesthesia of skin, R20.2 - Paresthesia of skin Referrals Cologuard Test Z12.11 - Encounter for screening for malignant neoplasm of colon, Z12.12 - Encounter for screening for malignant neoplasm of rectum Thoracic/General Surgery Referral F17.200 - Nicotine dependence, unspecified, uncomplicated Ophthalmology Referral E11.9 - Type 2 diabetes mellitus without complications Coding Level of Care Code Est Pt Level 3 (94460) Complex EM visit Add On G2211 Diagnoses Smoker F17.200 Dyslipidemia E78.5 High triglycerides E78.1 Diabetes E11.9 Cervical neck pain with evidence of disc disease M50.90 Left upper extremity numbness R20.0 Numbness and tingling of right upper extremity R20.0; R20.2
[2023-11-28 15:33] VITALS: BP 130/74; PULSE 69; O2SAT 96; BMI 31.0
== END 2023-11-28 16:47 | disposition home or self-care (01) ==
PROVIDERS: PCP Nurse Practitioner Family; Visit Provider Nurse Practitioner Family
DX: E11.65 Type 2 diabetes mellitus with hyperglycemia (principal); F17.200 Nicotine dependence, unspecified, uncomplicated; E78.5 Hyperlipidemia, unspecified; E78.1 Pure hyperglyceridemia; M50.90 Cervical disc disorder, unspecified, unspecified cervical region; R20.0 Anesthesia of skin; R20.2 Paresthesia of skin
CPT/HCPCS: 99213; G2211

== ENCOUNTER 2023-12-19 07:44 | Outpatient (REF) | payer OTHER, SELFPAY ==
--- NOTE | 2023-12-19 07:47 | EMG_ITS ---
Left median and ulnar motor and sensory studies were performed. Left radial and median and lateral antecubital brachial sensory studies were performed and paraspinal muscles were tested with a needle. IMPRESSION: Mild left ulnar neuropathy across cubital tunnel. MD AUNDREA Dejesus/DEIDRA / [id number]
== END 2023-12-19 07:45 | disposition home or self-care (01) ==
LOC: HO.NEURO 07:44
PROVIDERS: PCP Nurse Practitioner Family; Visit Provider Nurse Practitioner Family
DX: R20.0 Anesthesia of skin (principal)
CPT/HCPCS: 95886; 95910

== ENCOUNTER 2024-02-15 08:23 | Outpatient (REF) | payer OTHER, SELFPAY ==
[2024-02-15 10:15] LABS: Estimated Average Glucose 128 mg/dL; Hemoglobin A1c % 6.1 % (<6.0)
[2024-02-15 10:27] LABS: Alanine Aminotransferase 66 U/L (0-40); Albumin Level 4.4 g/dL (3.5-5.0); Alkaline Phosphatase 119 U/L (39-117); Anion Gap 12 (12-20); Aspartate Amino Transferase 43 U/L (5-37); Bilirubin Total 0.5 mg/dL (0.0-1.0); Blood Urea Nitrogen 12 mg/dL (9-16); Calcium 9.5 mg/dL (8.4-10.2); Carbon Dioxide 25 mmol/L (22-29); Chloride 109 mmol/L (96-108); Cholesterol 139 mg/dL (<200); Estimated Glomerular Filt Rate > 60; Glucose Fasting 139 mg/dL (60-99); HDL Cholesterol 27 mg/dL (>40); LDL Cholesterol Calculated 45 mg/dL (<100); Potassium 3.8 mmol/L (3.3-5.1); Sodium 142 mmol/L (135-145); Total Protein 7.2 g/dL (6.5-8.0); Triglycerides 339 mg/dL (<150)
== END 2024-02-15 08:24 | disposition home or self-care (01) ==
LOC: HO.HMGCLDS 08:23
PROVIDERS: PCP Nurse Practitioner Family; Visit Provider Nurse Practitioner Family
DX: E11.9 Type 2 diabetes mellitus without complications (principal); E78.1 Pure hyperglyceridemia; E78.5 Hyperlipidemia, unspecified
CPT/HCPCS: 36415; 80053; 80061; 83036

== ENCOUNTER 2024-02-26 12:36 | Outpatient (AMB) | payer OTHER, SELFPAY ==
[2024-02-26 12:42] VITALS: BP 130/80; PULSE 75; O2SAT 95
--- NOTE | 2024-02-26 12:42 | A.OFFPC_ITS ---
Vital Signs 02/26/24 12:42 Height 5 ft 8 in Weight 197 lb BMI 30.0 BP 130/80 Blood Pressure Location Rt brachial Position Sitting Pulse 75 Pulse Source Pulse Oximeter Pulse Oximetry (%) 95 Oxygen Delivery Method Room Air Intake Visit Reasons: 3M F/U Allergies Penicillins [PENICILLINS] Allergy (Mild, Verified 11/28/23 16:57) RASH-CHILDHOOD ALLERGY penicillin V Allergy (Unknown, Verified 11/28/23 16:57) rash, hives Tobacco use date assessed: 07/10/23 HPI 3M F/U HPI Details Pt is a diabetic, on an CHARLES and a statin. Last A1C was 6.1. Microalbumin is up to date. Denies polyuria, polydipsia, and neuropathy. Pt denies any signs and symptoms of hypoglycemia and does know how to correct it. Eye exam is up to date. Refuses low-dose CTs. Pt follows up with derm due to psoriasis. He reports ongoing discomfort throughout. Will increase gabapentin from 600mg qid to 800mg qid. Refuses colonoscopy, will order cologuard. [facility] Medical History Lumbago with sciatica Pharyngeal dysphagia Decreased hearing of right ear DDD (degenerative disc disease), cervical Enlarged prostate Psoriatic arthritis High triglycerides Dyslipidemia Surgical History History of esophagogastroduodenoscopy (EGD) H/O colonoscopy History of inguinal hernia Family History Father Colon cancer Mother HTN (hypertension) Brother No problems noted. Social History Household Members: Other Alcohol intake: current Alcohol intake frequency: does not drink Cigarettes Per Day: 10 Substance Use Type: Marijuana Cognitive needs: No Hearing needs: Yes Vision needs: No Questionnaire PHQ-9 Over the last 2 weeks, how often have you been bothered by any of the following problems? 57820 - PHQ-9 Billing: Patient declined-do not bill Source: Developed by Drs. Glenn Sainz, Nani Bolden, Kyler Eldridge and colleagues, with an educational dinah from [employer]. Thrive Questionnaire Date Thrive assessed: 07/10/23 I am a: Patient What is your living situation today?: I have a steady place to live Within the past 12 months, did the food you bought not last and you didn't have the money to get more?: I choose not to answer this question Within the past 12 months, did you worry whether your food would run out before you got money to buy more?: I choose not to answer this question Do you have trouble paying for medicines?: I choose not to answer this question Do you have trouble getting transportation to medical appointments?: I choose not to answer this question Do you have trouble paying your heating and electricity bill?: I choose not to a nswer this question Do you have trouble taking care of your child, family member or friend?: I choose not to answer this question Do you have trouble with day-to-day activities such as bathing, preparing meals, shopping, managing finances, etc.?: I choose not to answer this question Are you interested in more education?: I choose not to answer this question Please select the resources that you would like help with: None Currently or been in a relationship where the following occur: I choose not to answer THRIVE Score: 0 AUDIT C Alcohol Use Questionnaire (AUDIT-C) 1. How often do you have a drink containing alcohol?: Never Total Score: 0 ARLEN-7 AMB Questionnaire ARLEN-7 Feeling nervous, anxious, or on edge: 0 = Not at all Not being able to stop or control worryin = Not at all Worrying too much about different things: 0 = Not at all Trouble relaxin = Not at all Being so restless that it is hard to sit still: 0 = Not at all Becoming easily annoyed or irritable: 0 = Not at all Feeling afraid as if something awful might happen: 0 = Not at all Total ARLEN-7 score (0-4 normal; 5-9 mild; 10-14 moderate; 15-21 severe): 0 Source: Developed by Drs. Glenn Sainz, Nani Bolden, Kyler Eldridge and colleagues, with an educational dinah from [employer]. ARLEN-7 Assessment Billing ARLEN-7 Assessment Tool: ARLEN-7 Assessment 12617 Review of Systems Const Reports as per HPI Physical exam (Primary Care) Vital Signs: Last Vital Signs Pulse 75 02/26/24 12:42 BP 130/80 02/26/24 12:42 Pulse Ox 95 02/26/24 12:42 Oxygen Delivery Method Room Air 02/26/24 12:42 BMI result Body Mass Index 30.0 Tobacco/Smoking Status: Tobacco use Status Tobacco use date assessed 07/10/23 02/26/24 12:43 Thrive Assessment: Date of Thrive Assessment Date Thrive assessed 07/10/23 02/26/24 12:43 Currently or been in a relationship where the following occur: I choose not to answer Const General: cooperative Orientation/consciousness: patient oriented x3 Resp Effort & Inspection: normal respiratory effort Auscultation: clear to auscultation bilaterally Cardio Rate: regular rate Rhythm: regular rhythm Heart sounds: S1 normal heart sound present and S2 normal heart sound present Neuro General: patient oriented x3 Extrem Other: bilat feet: + sensation with use of monofilament, feet intact, significant onychomycosis noted bilat, erythematous dryness to plantar feet Psych Appearance: grossly normal Mental Status: mental status grossly normal Speech and movement: Normal speech and movement present Affect: normal affect Attitude: cooperative Thought process: Normal thought process present Thought content: Normal thought content present Insight: Good insight present (Psych) Judgement: Good judgement present (Psych) Coding Level of Care Code Est Pt Level 3 (97202) Diagnoses Diabetes E11.9 Smoker F17.200 Additional Codes ARLEN-7 Assessment Billing - ARLEN-7 Assessment Tool: ARLEN-7 Assessment 85516 ([id number]) Assessment & Plan Assessment & Plan (1) Diabetes: Code(s): E11.9 - Type 2 diabetes mellitus without complications Category: Medical Plan: A1C stable (2) Smoker: Code(s): F17.200 - Nicotine dependence, unspecified, uncomplicated Category: Social Hx Plan: refused LDCT Plan The patient agreed to the use of a medical office administrator for this encounter. Scribed for KIANA Rodriguez by mel Murillo scribe, on 02/26/2024 at 13:05 EST. Medications: Changed From gabapentin 600 mg PO QID 120 tabs 2RF To gabapentin 800 mg PO QID 30 days 120 tabs 2RF
== END 2024-02-26 13:26 | disposition home or self-care (01) ==
PROVIDERS: PCP Nurse Practitioner Family; Visit Provider Nurse Practitioner Family
DX: E11.9 Type 2 diabetes mellitus without complications (principal); F17.200 Nicotine dependence, unspecified, uncomplicated

== ENCOUNTER → 2024-02-26 12:36 | Outpatient (BNVA) | payer OTHER, SELFPAY | PROVIDERS: PCP Nurse Practitioner Family; Visit Provider Nurse Practitioner Family | DX: E11.9 Type 2 diabetes mellitus without complications (principal); F17.200 Nicotine dependence, unspecified, uncomplicated; Z71.6 Tobacco abuse counseling | CPT/HCPCS: 96127; 99212 ==

== ENCOUNTER 2024-10-28 06:49 | Outpatient (REF) | payer OTHER, SELFPAY ==
[2024-10-31 01:22] LABS: TS Negative Control Passed; TS Panel A 0; TS Panel B 0; TS Positive Control Passed; TSpotTB Negative (Negative)
== END 2024-10-28 06:50 | disposition home or self-care (01) ==
LOC: HO.HMGCLDS 06:49
PROVIDERS: PCP Nurse Practitioner Family; Visit Provider Physician Assistant Medical
DX: L40.0 Psoriasis vulgaris (principal)
CPT/HCPCS: 36415; 86481

== ENCOUNTER 2025-04-23 06:38 | Outpatient (REF) | payer OTHER, SELFPAY ==
[2025-04-23 10:17] LABS: MANUAL DIFF FLAG NO
[2025-04-23 10:33] LABS: Hematocrit 46.1 % (42.0-52.0); Hemoglobin 16.1 g/dl (14.0-18.0); Imm Gran Abs Auto 0.02 X10*3/uL (0.00-0.03); Imm Gran Pct Auto 0.2 % (0.0-0.4); Lymphocytes Absolute Auto 4.1 X10*3/uL (1.2-4.9); Mean Corpuscular HGB Conc 34.9 g/dl (31.0-36.0); Mean Corpuscular Hemoglobin 31.5 pg (27.0-33.0); Mean Corpuscular Volume 90.2 fL (80.0-98.0); NRBC Abs Auto 0.000 X10*3/uL (0.0-0.012); NRBC Pct Auto 0.0 /100WBC (0.0-0.2); Platelet Count 232 X10*3/uL (160-400); Red Blood Count 5.11 X10*6/uL (4.60-5.80); White Blood Count 9.1 X10*3/uL (4.8-10.8)
[2025-04-23 11:02] LABS: Alanine Aminotransferase 77 U/L (0-40); Albumin Level 4.5 g/dL (3.5-5.0); Alkaline Phosphatase 125 U/L (39-117); Anion Gap 10 (12-20); Aspartate Amino Transferase 56 U/L (5-37); Blood Urea Nitrogen 12 mg/dL (9-16); Calcium 8.9 mg/dL (8.4-10.2); Carbon Dioxide 24 mmol/L (22-29); Chloride 110 mmol/L (96-108); Cholesterol 148 mg/dL (<200); Estimated Glomerular Filt Rate > 60; HDL Cholesterol 30 mg/dL (>40); Potassium 3.1 mmol/L (3.3-5.1); Sodium 141 mmol/L (135-145); Total Protein 7.0 g/dL (6.5-8.0); Triglycerides 401 mg/dL (<150)
[2025-04-23 11:17] LABS: Appearance Urine Clear; Glucose Urine UA >=1000 mg/dL (Negative); PH 5.0 (5.0-9.0); Specific Gravity - Urine >= 1.030 (1.005-1.025); UMIC TRIGGER UACC YES
[2025-04-23 11:22] LABS: Microalbum/Creatinine Ratio Ur 319.0 ug/mg cr (<30)
== END 2025-04-23 06:39 | disposition home or self-care (01) ==
LOC: HO.HMGCLDS 06:38
PROVIDERS: PCP Nurse Practitioner Family; Visit Provider Nurse Practitioner Family
DX: Z12.5 Encounter for screening for malignant neoplasm of prostate (principal); I10 Essential (primary) hypertension; E11.9 Type 2 diabetes mellitus without complications
CPT/HCPCS: 36415; 80053; 80061; 81001; 81003; 82043; 82570; 83036; 84153; 84443; 85025

== ENCOUNTER 2025-04-28 10:53 | Outpatient (REF) | payer OTHER, SELFPAY ==
[2025-04-28 16:44] LABS: Alanine Aminotransferase 48 U/L (0-40); Albumin Level 4.9 g/dL (3.5-5.0); Alkaline Phosphatase 119 U/L (39-117); Anion Gap 14 (12-20); Aspartate Amino Transferase 37 U/L (5-37); Blood Urea Nitrogen 13 mg/dL (9-16); Calcium 9.5 mg/dL (8.4-10.2); Carbon Dioxide 25 mmol/L (22-29); Chloride 107 mmol/L (96-108); Estimated Glomerular Filt Rate > 60; Potassium 3.6 mmol/L (3.3-5.1); Sodium 142 mmol/L (135-145); Total Protein 7.3 g/dL (6.5-8.0)
[2025-05-02 00:13] LABS: Alk.Phos Iso. Macrohepatic 0 % (<=0); Alk.Phos Isoenzymes Bone 38 % (28-66); Alk.Phos Isoenzymes Intest 0 % (1-24); Alk.Phos Isoenzymes Liver 62 % (25-69); Alk.Phos Isoenzymes Placental 0 % (<=0); Alk.Phos Isoenzymes Total 104 U/L (35-144)
== END 2025-04-28 10:54 | disposition home or self-care (01) ==
LOC: HO.HMGCLDS 10:53
PROVIDERS: PCP Nurse Practitioner Family; Visit Provider Nurse Practitioner Family
DX: Z23 Encounter for immunization (principal); Z12.11 Encounter for screening for malignant neoplasm of colon; E87.6 Hypokalemia; R74.8 Abnormal levels of other serum enzymes; E11.9 Type 2 diabetes mellitus without complications; F17.210 Nicotine dependence, cigarettes, uncomplicated
CPT/HCPCS: 36415; 80053; 83036; 84080; 90471; 90677; 99212

== ENCOUNTER 2025-04-28 10:53 | Outpatient (AMB) | payer OTHER, SELFPAY ==
[2025-04-28 11:40] VITALS: BP 140/80; PULSE 69; RESP 16; O2SAT 95
--- NOTE | 2025-04-28 11:40 | MHC.PC.OV ---
Vital Signs 04/28/25 11:40 Weight 194 lb BP 140/80 H Blood Pressure Location Rt brachial Position Sitting Respiration 16 Pulse 69 Pulse Source Pulse Oximeter Pulse Oximetry (%) 95 Oxygen Delivery Method Room Air Intake Visit Reasons: PHQ and a1c Allergies Penicillins (PENICILLINS) Allergy (Mild, Verified 11/28/23 16:57) RASH-CHILDHOOD ALLERGY penicillin V Allergy (Unknown, Verified 11/28/23 16:57) rash, hives Medication List - Last Reconciled 04/28/25 by Marcos Houston [facility] amitriptyline 10 mg PO BEDTIME amlodipine 5 mg PO DAILY atorvastatin 80 mg PO DAILY blood sugar diagnostic (FreeStyle Lite Strips) Use to check fasting blood sugar and a random blood sugar during the day. blood-glucose meter (FreeStyle Lite Meter kit) Use to check fasting blood sugar and a random blood sugar during the day. clobetasol 0.05% topical dapagliflozin propanediol (Farxiga) 5 mg PO DAILY fenofibrate nanocrystallized 145 mg PO DAILY gabapentin 800 mg PO QID 30 days guselkumab (Tremfya) mg subcut lancets (FreeStyle Lancets) Use to check fasting blood sugar and a random blood sugar during the day. lisinopril 10 mg PO DAILY metoprolol succinate ER 25 mg PO DAILY omega-3 acid ethyl esters 2 caps PO BID paroxetine HCl 40 mg PO QAM Tobacco use date assessed: 07/10/23 HPI PHQ and a1c HPI Details Chief Complaint The patient presents for a follow-up visit for diabetes. History of Present Illness The patient is a 54 year old male presenting for a follow-up for diabetes. He denies any neuropathy, chest pain, or increased shortness of breath. The patient smokes significantly and has a history of refusing low-dose CT scans in the past despite his many years of smoking. He is now interested in the screening. He is very hard of hearing. NOTE: elevated alk phos, will order a isoenzyme break down. Hypokalemia also noted, will recheck this Social History - Substance Use: Smokes heavily. - Family and Social Support: Reports his mother is currently in the hospital and he is worried about her. Health Maintenance - Due for an eye exam. - Patient previously refused low-dose CT scans but is now interested. - Due for a repeat colonoscopy, though he is hesitant. - Due for flu and pneumonia vaccinations. Review of Systems - Neurological: Denies neuropathy. - Cardiovascular: Denies chest pain. - Respiratory: Denies increased shortness of breath. Physical Exam General: Cooperative, healthy appearing, comfortable, no acute distress and well developed Orientation: Patient oriented x3 Limitations: No limitations Head: Normal to inspection Ears: Very hard of hearing Nose: Normal external nose present Face and sinus: Normal facial exam Eyes: Appearance normal, both eyes and all related structures Neck: Normal visual inspection and Yes full ROM Respiratory: Clear to auscultation bilaterally Cardiovascular: Regular rate and rhythm. Normal S1 and S2 GI: Normal to inspection. Soft to palpation and nontender Skin: No rashes or lesions noted Neuro: Patient oriented x3 Extremities: Toes with onychomycosis noted bilaterally. Feet were intact otherwise positive sensation with use of monofilament Results Plan Patient was informed and verbally consented to the use of an ambient scribe for clinic note documentation during this visit. 1. Diabetes Mellitus A referral for an eye exam will be placed today. 2. Tobacco Use An order will be placed for a low-dose CT scan. 3. Preventative Care: Colonoscopy Due to the patient's history and smoking history, an order for a repeat colonoscopy will be placed. 4. Preventative Care: Vaccinations The patient will receive his pneumonia vaccination today. He will get his flu vaccination at his pharmacy. Discussion Notes I will place a referral for an eye exam, which is due. The patient has previously refused low-dose CT scans but is now interested, so I will place that order. Although the patient was hesitant, I will also place an order for a repeat colonoscopy given his history and smoking history. He is due for both flu and pneumonia vaccinations; I will give him his pneumonia vaccine today and instructed him to get the flu shot at his pharmacy. Patient Instructions - We have placed a referral for you to get an eye exam. - We have placed an order for you to get a low-dose CAT scan of your lungs. - An order for a repeat colonoscopy will also be placed for you. - You received your pneumonia shot today. - Please get your flu shot at your pharmacy. [facility] Medical History Lumbago with sciatica Pharyngeal dysphagia Decreased hearing of right ear DDD (degenerative disc disease), cervical Enlarged prostate Psoriatic arthritis High triglycerides Dyslipidemia Surgical History History of esophagogastroduodenoscopy (EGD) H/O colonoscopy History of inguinal hernia Family History Father Colon cancer Mother HTN (hypertension) Brother No problems noted. Social History Household Members: Other Alcohol intake: current Alcohol intake frequency: does not drink Cigarettes Per Day: 10 Substance Use Type: Marijuana Cognitive needs: No Hearing needs: Yes Vision needs: No Questionnaire Thrive Questionnaire Date Thrive assessed: 03/18/25 I am a: Patient What is your living situation today?: I choose not to answer this question Within the past 12 months, did the food you bought not last and you didn't have the money to get more?: I choose not to answer this question Within the past 12 months, did you worry whether your food would run out before you got money to buy more?: I choose not to answer this question Do you have trouble paying for medicines?: I choose not to answer this question Do you have trouble getting transportation to medical appointments?: I choose not to answer this question Do you have trouble paying your heating and electricity bill?: I choose not to answer this question Do you have trouble taking care of your child, family member or friend?: I choose not to answer this question Do you have trouble with day-to-day activities such as bathing, preparing meals, shopping, managing finances, etc.?: I choose not to answer this question Are you currently unemployed and looking for a job?: I choose not to answer this question Are you interested in more education?: I choose not to answer this question Please select the resources that you would like help with: None Currently or been in a relationship where the following occur: I choose not to answer THRIVE Score: 0 Physical exam (Primary Care) Vital Signs: Last Vital Signs Pulse 69 04/28/25 11:40 Resp 16 04/28/25 11:40 BP 140/80 H 04/28/25 11:40 Pulse Ox 95 04/28/25 11:40 Oxygen Delivery Method Room Air 04/28/25 11:40 Tobacco/Smoking Status: Tobacco use Status Tobacco use date assessed 07/10/23 04/28/25 11:45 Thrive Assessment: Date of Thrive Assessment Date Thrive assessed 03/18/25 04/28/25 11:45 Currently or been in a relationship where the following occur: I choose not to answer Results AMB Hemoglobin A1c AMB Hemoglobin A1c 6.0 % Last Edit by Inge Taylor MA on 04/28/25 11:57 Coding Level of Care Code Est Pt Level 3 (95519) Diagnoses Elevated alkaline phosphatase level R74.8 Hypokalemia E87.6 Diabetes E11.9 History of colon polyps Z86.010 Screening for colon cancer Z12.11 Smoker F17.200 Assessment & Plan Assessment & Plan (1) Elevated alkaline phosphatase level: Code(s): R74.8 - Abnormal levels of other serum enzymes Category: Medical (2) Hypokalemia: Code(s): E87.6 - Hypokalemia Category: Medical (3) Diabetes: Code(s): E11.9 - Type 2 diabetes mellitus without complications Category: Medical (4) History of colon polyps: Code(s): Z86.010 - Personal history of colon polyps Category: Medical (5) Screening for colon cancer: Code(s): Z12.11 - Encounter for screening for malignant neoplasm of colon Category: Medical (6) Smoker: Code(s): F17.200 - Nicotine dependence, unspecified, uncomplicated Category: Social Hx Plan . Orders: Orders AMB Hemoglobin A1c Today E11.9 - Type 2 diabetes mellitus without complications Alkaline Phosphatase Isoenzyme Today R74.8 - Abnormal levels of other serum enzymes CT lung screening Today F17.200 - Nicotine dependence, unspecified, uncomplicated Comprehensive Met. Panel Today E87.6 - Hypokalemia Referrals Ophthalmology Referral E11.9 - Type 2 diabetes mellitus without complications Gastroenterology Referral Z12.11 - Encounter for screening for malignant neoplasm of colon, Z86.010 - Personal history of colon polyps Medications: Refilled gabapentin 800 mg PO QID 120 tabs 5RF 30 days
== END 2025-04-28 13:10 | disposition home or self-care (01) ==
LOC: HO.HMCC 10:54
PROVIDERS: PCP Nurse Practitioner Family; Visit Provider Nurse Practitioner Family
DX: R74.8 Abnormal levels of other serum enzymes (principal); E87.6 Hypokalemia; E11.9 Type 2 diabetes mellitus without complications; Z86.0100 Personal history of colon polyps, unspecified; Z12.11 Encounter for screening for malignant neoplasm of colon; F17.200 Nicotine dependence, unspecified, uncomplicated; Z23 Encounter for immunization